=== PATIENT | female | born 1960 | race Caucasian/White ===

== ENCOUNTER 2020-03-12 04:47 | Day surgery (SDC) | payer OTHER ==
[2020-03-09 10:53] VITALS: BMI 24.0
[2020-03-12] MEDS ORDERED: LIDOCAINE HCL/PF 1% SDV 5ML VIAL ONE (07:47)
[2020-03-12] MEDS ORDERED: IOHEXOL 180 MG/1 ML ML IJ ONE (12:04)
[2020-03-12] MEDS ORDERED: DEXAMETHASONE SOD PHOSPHATE 4 MG/1 ML VIAL IM ONE (12:04)
[2020-03-12] MEDS ORDERED: LIDOCAINE HCL 1% PRESERVATIVE FREE - 30ML VIAL IJ ONE (12:04)
[2020-03-12 14:35] VITALS: BP 118/78; PULSE 60; TEMP 98
== END 2020-03-12 13:00 | disposition home or self-care (01) ==
LOC: JASU-SURG 04:47
PROVIDERS: ATTEND Pain Medicine Pain Medicine
PROC: 3E0R33Z Introduction of Anti-inflammatory into Spinal Canal, Percutaneous Approach (ICD-10-PCS; 2020-03-12)
PROC: 3E0R3BZ Introduction of Anesthetic Agent into Spinal Canal, Percutaneous Approach (ICD-10-PCS; principal; 2020-03-12 12:00)
DX: M54.12 Radiculopathy, cervical region (principal)

== ENCOUNTER 2020-05-18 04:23 | Day surgery (SDC) | payer OTHER ==
[2020-05-16 14:30] VITALS: BMI 23.5
[2020-05-18] MEDS ORDERED: LIDOCAINE HCL/PF 1% SDV 5ML VIAL ONE (07:26)
[2020-05-18] MEDS ORDERED: DEXAMETHASONE SOD PHOSPHATE 4 MG/1 ML VIAL IM ONE ×2 (11:46)
[2020-05-18] MEDS ORDERED: LIDOCAINE HCL 1% PRESERVATIVE FREE - 30ML VIAL INF ONE (11:47)
[2020-05-18] MEDS ORDERED: IOHEXOL 180 MG/1 ML ML IJ ONE (11:49)
[2020-05-18 12:19] VITALS: BP 115/74; PULSE 66; TEMP 97
== END 2020-05-18 12:54 | disposition home or self-care (01) ==
LOC: JASU-SURG 04:23
PROVIDERS: ATTEND Pain Medicine Pain Medicine
PROC: 3E0R33Z Introduction of Anti-inflammatory into Spinal Canal, Percutaneous Approach (ICD-10-PCS; 2020-05-18)
PROC: 3E0R3BZ Introduction of Anesthetic Agent into Spinal Canal, Percutaneous Approach (ICD-10-PCS; principal; 2020-05-18 11:00)
DX: M54.12 Radiculopathy, cervical region (principal)
CPT/HCPCS: 76000-TC-FY

== ENCOUNTER 2020-05-29 08:56 | Inpatient (IN) | payer OTHER ==
[2020-05-29] MEDS ORDERED: ACETAMINOPHEN 325 MG TABLET (FP) PO ONE (10:15)
[2020-05-29] MEDS ORDERED: LACTATED RINGERS SOLUTION 1000 ML INFUS.BAG IV ONE (10:15)
[2020-05-29] MEDS ORDERED: ACETAMINOPHEN 325 MG TABLET (FP) ONE (10:26)
[2020-05-29 10:38] LABS: VENOUS BASE EXCESS 1.6 mmol/L (-2-2); VENOUS O2 SATURATION 37.1 % (70-80); VENOUS PCO2 45.8 mmHg (38-52); VENOUS PH 7.39 (7.310-7.410)
[2020-05-29 10:39] LABS: BASO % 0.1 % (0-2.0); EOS % 0.2 % (0-4.5); HEMATOCRIT 37.5 % (32.4-45.2); HEMOGLOBIN 12.9 GM/dL (10.7-15.3); LYMPH % 10.9 % (8-40); MCH 30.5 pg (25.7-33.7); MCHC 34.4 g/dl (32.0-36.0); MEAN CELL VOLUME 88.7 fl (80-96); MEAN PLT VOLUME 9.2 fl (7.5-11.1); MONO % 5.7 % (3.8-10.2); NEUT % 83.1 % (42.8-82.8); PLATELET COUNT 163 K/MM3 (134-434); RBC 4.23 M/mm3 (3.60-5.2); RDW 12.7 % (11.6-15.6); WHITE BLOOD COUNT 7.1 K/mm3 (4.0-10.0)
[2020-05-29 11:00] LABS: CHLORIDE 110 mmol/L (98-107); INR 1.05 (0.83-1.09); PROTHROMBIN TIME (PATIENT) 12.7 SEC (9.7-13.0); SODIUM 146 mmol/L (136-145)
[2020-05-29 11:02] LABS: ACTIVATED PTT 34.1 SECONDS (25.2-36.5); ALBUMIN 2.8 g/dl (3.4-5.0); ANION GAP 7 MMOL/L (8-16); BLOOD UREA NITROGEN 12.4 mg/dL (7-18); CALCIUM 8.3 mg/dL (8.5-10.1); CO2 28 mmol/L (21-32); MAGNESIUM 2.1 mg/dL (1.8-2.4)
[2020-05-29 11:03] LABS: GLUCOSE,RANDOM 91 mg/dL (74-106)
[2020-05-29 11:05] LABS: PHOSPHOROUS 2.6 mg/dL (2.5-4.9); SGOT/AST 40 U/L (15-37); SGPT/ALT 35 U/L (13-61)
[2020-05-29 11:06] LABS: CREATININE 0.7 mg/dL (0.55-1.3); LDH 355 U/L (84-246)
[2020-05-29 11:07] LABS: BILIRUBIN,TOTAL 0.4 mg/dL (0.2-1)
[2020-05-29 11:08] LABS: ALK PHOS 57 U/L (45-117)
[2020-05-29] MEDS ORDERED: DEXAMETHASONE SOD PHOSPHATE 4 MG/1 ML VIAL IVPUSH ONE (11:40)
[2020-05-29] MEDS ORDERED: DEXAMETHASONE SOD PHOSPHATE 10 MG/1 ML VIAL ONE (11:59)
[2020-05-29 12:04] LABS: ERYTHROCYTE SEDIMENTATION RATE 38 mm/hr (0-30)
[2020-05-29] MEDS ORDERED: MELATONIN 5 MG TABLETS PO ONE (23:02)
[2020-05-29] MEDS: ASCORBIC ACID 500 MG TABLET (FP) PO SCH (23:21)
[2020-05-29 23:55] VITALS: BMI 23.7
[2020-05-30] MEDS ORDERED: guaiFENesin 200 MG/10 ML 10 ML UNIT-DOSE CUPS PO PRN (03:12)
[2020-05-30 09:26] LABS: BASO % 0.3 % (0-2.0); HEMATOCRIT 35.9 % (32.4-45.2); HEMOGLOBIN 12.6 GM/dL (10.7-15.3); LYMPH % 18.6 % (8-40); MCH 30.5 pg (25.7-33.7); MEAN CELL VOLUME 87.2 fl (80-96); MEAN PLT VOLUME 8.8 fl (7.5-11.1); MONO % 8.1 % (3.8-10.2); PLATELET COUNT 177 K/MM3 (134-434); RBC 4.12 M/mm3 (3.60-5.2); RDW 12.7 % (11.6-15.6); WHITE BLOOD COUNT 3.8 K/mm3 (4.0-10.0)
[2020-05-30 10:04] LABS: EPI CELLS 16 /uL (0-25.1); HYALINE CASTS 2 /uL (0-3.1); URINE APPEARANCE CLEAR; URINE BACTERIA 278 /uL (0-1359); URINE BILIRUBIN NEGATIVE (NEGATIVE); URINE COLOR YELLOW; URINE GLUCOSE (UA) NEGATIVE (NEGATIVE); URINE KETONE NEGATIVE (NEGATIVE); URINE LEUK ESTERASE NEGATIVE (NEGATIVE); URINE NITRITE NEGATIVE (NEGATIVE); URINE PROTEIN 1+ (NEGATIVE); URINE WBC 10 /uL (0-25.8)
[2020-05-30 10:04] LABS: POTASSIUM 3.8 mmol/L (3.5-5.1)
[2020-05-30 10:23] LABS: URINE RBC 33.6 /uL (0-23.9); YEAST NONE SEEN (NEGATIVE)
[2020-05-30 10:25] LABS: ALBUMIN 2.6 g/dl (3.4-5.0); BLOOD UREA NITROGEN 17.1 mg/dL (7-18); CALCIUM 8.8 mg/dL (8.5-10.1); MAGNESIUM 2.2 mg/dL (1.8-2.4)
[2020-05-30 10:27] LABS: CREATININE 0.6 mg/dL (0.55-1.3); PHOSPHOROUS 3.7 mg/dL (2.5-4.9)
[2020-05-30 10:28] LABS: BILIRUBIN,TOTAL 0.5 mg/dL (0.2-1); TOT PROT 5.9 g/dl (6.4-8.2)
[2020-05-30] MEDS: DEXAMETHASONE SOD PHOSPHATE 10 MG/1 ML VIAL IVPUSH SCH (10:56)
[2020-05-30] MEDS: ZINC SULFATE 220 MG CAPSULE (FP) PO SCH (10:56)
[2020-05-30] MEDS: ENOXAPARIN NA (PORCINE) 40 MG/0.4 ML DISP.SYRIN SQ SCH (10:56)
[2020-05-30] MEDS: ASCORBIC ACID 500 MG TABLET (FP) PO SCH ×2 (10:56→22:08)
[2020-05-30] MEDS: CHOLECALCIFEROL (VIT D3) 1,000 UNIT (25 MCG) TABLET PO SCH (10:56)
[2020-05-30] MEDS: FAMOTIDINE 20 MG TABLET PO SCH (10:56)
[2020-05-30] MEDS ORDERED: REMDESIVIR 200 MG in SODIUM CHLORIDE 210 ML IVPB ONE ×2 (17:00→20:00)
[2020-05-30] MEDS: guaiFENesin 200 MG/10 ML 10 ML UNIT-DOSE CUPS PO PRN (22:45)
[2020-05-31] MEDS ORDERED: MELATONIN 5 MG TABLETS PO ONE ×2 (01:03→22:22)
[2020-05-31] MEDS: guaiFENesin 200 MG/10 ML 10 ML UNIT-DOSE CUPS PO PRN (05:20)
[2020-05-31 09:15] LABS: BASO % 0.1 % (0-2.0); EOS % 0.1 % (0-4.5); HEMATOCRIT 33.7 % (32.4-45.2); HEMOGLOBIN 11.9 GM/dL (10.7-15.3); LYMPH % 18.1 % (8-40); MCH 30.6 pg (25.7-33.7); MCHC 35.3 g/dl (32.0-36.0); MEAN CELL VOLUME 86.8 fl (80-96); MEAN PLT VOLUME 9.2 fl (7.5-11.1); MONO % 11.3 % (3.8-10.2); NEUT % 70.4 % (42.8-82.8); PLATELET COUNT 229 K/MM3 (134-434); RBC 3.88 M/mm3 (3.60-5.2); RDW 12.2 % (11.6-15.6); WHITE BLOOD COUNT 6.2 K/mm3 (4.0-10.0)
[2020-05-31 09:28] LABS: POTASSIUM 3.9 mmol/L (3.5-5.1)
[2020-05-31 09:36] LABS: ALBUMIN 2.6 g/dl (3.4-5.0); CALCIUM 8.4 mg/dL (8.5-10.1); MAGNESIUM 2.2 mg/dL (1.8-2.4)
[2020-05-31 09:39] LABS: BILIRUBIN,TOTAL 0.4 mg/dL (0.2-1); CREATININE 0.5 mg/dL (0.55-1.3); PHOSPHOROUS 4.3 mg/dL (2.5-4.9)
[2020-05-31 09:40] LABS: TOT PROT 5.6 g/dl (6.4-8.2)
[2020-05-31] MEDS: DEXAMETHASONE SOD PHOSPHATE 10 MG/1 ML VIAL IVPUSH SCH (10:02)
[2020-05-31] MEDS: ENOXAPARIN NA (PORCINE) 40 MG/0.4 ML DISP.SYRIN SQ SCH (10:02)
[2020-05-31] MEDS: ZINC SULFATE 220 MG CAPSULE (FP) PO SCH (10:02)
[2020-05-31] MEDS: ASCORBIC ACID 500 MG TABLET (FP) PO SCH ×2 (10:02→22:26)
[2020-05-31] MEDS: FAMOTIDINE 20 MG TABLET PO SCH (10:03)
[2020-05-31] MEDS: CHOLECALCIFEROL (VIT D3) 1,000 UNIT (25 MCG) TABLET PO SCH (10:03)
[2020-05-31 10:52] LABS: ERYTHROCYTE SEDIMENTATION RATE 32 mm/hr (0-30)
[2020-05-31] MEDS: FLUoxetine HCL 20 MG CAPSULE PO SCH (13:41)
[2020-05-31] MEDS: REMDESIVIR 100 MG in SODIUM CHLORIDE 230 ML IVPB SCH (13:41)
[2020-06-01 09:07] LABS: BASO % 0.1 % (0-2.0); EOS % 0.1 % (0-4.5); HEMATOCRIT 36.5 % (32.4-45.2); HEMOGLOBIN 12.6 GM/dL (10.7-15.3); LYMPH % 24.8 % (8-40); MCH 30.4 pg (25.7-33.7); MCHC 34.5 g/dl (32.0-36.0); MEAN PLT VOLUME 9.2 fl (7.5-11.1); MONO % 14.3 % (3.8-10.2); NEUT % 60.7 % (42.8-82.8); PLATELET COUNT 253 K/MM3 (134-434); RBC 4.14 M/mm3 (3.60-5.2); RDW 12.1 % (11.6-15.6); WHITE BLOOD COUNT 5.6 K/mm3 (4.0-10.0)
[2020-06-01 09:57] LABS: CHLORIDE 106 mmol/L (98-107); POTASSIUM 4.1 mmol/L (3.5-5.1); SODIUM 140 mmol/L (136-145)
[2020-06-01 10:02] LABS: CALCIUM 8.8 mg/dL (8.5-10.1)
[2020-06-01 10:03] LABS: ALBUMIN 2.8 g/dl (3.4-5.0); ANION GAP 5 MMOL/L (8-16); BLOOD UREA NITROGEN 24.2 mg/dL (7-18); CO2 29 mmol/L (21-32); GLUCOSE,RANDOM 89 mg/dL (74-106); MAGNESIUM 2.2 mg/dL (1.8-2.4)
[2020-06-01 10:06] LABS: ALK PHOS 50 U/L (45-117); CREATININE 0.7 mg/dL (0.55-1.3); PHOSPHOROUS 4.2 mg/dL (2.5-4.9); SGOT/AST 28 U/L (15-37); SGPT/ALT 48 U/L (13-61)
[2020-06-01 10:08] LABS: BILIRUBIN,TOTAL 0.9 mg/dL (0.2-1); TOT PROT 6.1 g/dl (6.4-8.2)
[2020-06-01] MEDS: ZINC SULFATE 220 MG CAPSULE (FP) PO SCH (11:00)
[2020-06-01] MEDS: ASCORBIC ACID 500 MG TABLET (FP) PO SCH ×2 (11:01→23:26)
[2020-06-01] MEDS: DEXAMETHASONE SOD PHOSPHATE 10 MG/1 ML VIAL IVPUSH SCH (11:01)
[2020-06-01] MEDS: CHOLECALCIFEROL (VIT D3) 1,000 UNIT (25 MCG) TABLET PO SCH (11:01)
[2020-06-01] MEDS: FLUoxetine HCL 20 MG CAPSULE PO SCH (11:02)
[2020-06-01] MEDS: ENOXAPARIN NA (PORCINE) 40 MG/0.4 ML DISP.SYRIN SQ SCH (11:03)
[2020-06-01] MEDS: FAMOTIDINE 20 MG TABLET PO SCH (11:03)
[2020-06-01] MEDS: REMDESIVIR 100 MG in SODIUM CHLORIDE 230 ML IVPB SCH (16:56)
[2020-06-01] MEDS ORDERED: MELATONIN 5 MG TABLETS PO SCH (22:00)
[2020-06-01] MEDS: ZOLPIDEM TARTRATE 5 MG TABLET PO PRN (23:26)
[2020-06-02] MEDS: CHOLECALCIFEROL (VIT D3) 1,000 UNIT (25 MCG) TABLET PO SCH (09:36)
[2020-06-02] MEDS: ENOXAPARIN NA (PORCINE) 40 MG/0.4 ML DISP.SYRIN SQ SCH (09:36)
[2020-06-02] MEDS: FLUoxetine HCL 20 MG CAPSULE PO SCH (09:36)
[2020-06-02] MEDS: FAMOTIDINE 20 MG TABLET PO SCH (09:37)
[2020-06-02] MEDS: DEXAMETHASONE SOD PHOSPHATE 10 MG/1 ML VIAL IVPUSH SCH (09:37)
[2020-06-02] MEDS: ZINC SULFATE 220 MG CAPSULE (FP) PO SCH (09:37)
[2020-06-02] MEDS: ASCORBIC ACID 500 MG TABLET (FP) PO SCH ×2 (09:37→22:23)
[2020-06-02 10:04] LABS: BASO % 0.4 % (0-2.0); EOS % 0.4 % (0-4.5); HEMOGLOBIN 13.2 GM/dL (10.7-15.3); LYMPH % 29.8 % (8-40); MCH 30.5 pg (25.7-33.7); MCHC 34.8 g/dl (32.0-36.0); MEAN CELL VOLUME 87.7 fl (80-96); MEAN PLT VOLUME 8.6 fl (7.5-11.1); MONO % 13.4 % (3.8-10.2); PLATELET COUNT 304 K/MM3 (134-434); RBC 4.33 M/mm3 (3.60-5.2); RDW 12.1 % (11.6-15.6); WHITE BLOOD COUNT 5.3 K/mm3 (4.0-10.0)
[2020-06-02 10:49] LABS: ALBUMIN 2.8 g/dl (3.4-5.0); BLOOD UREA NITROGEN 20.5 mg/dL (7-18); CALCIUM 8.3 mg/dL (8.5-10.1); MAGNESIUM 2.2 mg/dL (1.8-2.4)
[2020-06-02 10:50] LABS: CREATININE 0.7 mg/dL (0.55-1.3)
[2020-06-02 10:51] LABS: PHOSPHOROUS 3.2 mg/dL (2.5-4.9)
[2020-06-02 10:52] LABS: BILIRUBIN,TOTAL 0.9 mg/dL (0.2-1); TOT PROT 5.9 g/dl (6.4-8.2)
[2020-06-02 11:12] LABS: POTASSIUM 3.4 mmol/L (3.5-5.1)
[2020-06-02] MEDS: REMDESIVIR 100 MG in SODIUM CHLORIDE 230 ML IVPB SCH (13:53)
[2020-06-02] MEDS: ZOLPIDEM TARTRATE 5 MG TABLET PO PRN (22:23)
[2020-06-03 09:59] LABS: BASO % 0.2 % (0-2.0); EOS % 0.7 % (0-4.5); HEMATOCRIT 38.5 % (32.4-45.2); HEMOGLOBIN 13.6 GM/dL (10.7-15.3); LYMPH % 27.3 % (8-40); MCH 30.5 pg (25.7-33.7); MCHC 35.3 g/dl (32.0-36.0); MEAN CELL VOLUME 86.6 fl (80-96); MEAN PLT VOLUME 8.4 fl (7.5-11.1); MONO % 10.1 % (3.8-10.2); NEUT % 61.7 % (42.8-82.8); PLATELET COUNT 376 K/MM3 (134-434); RBC 4.44 M/mm3 (3.60-5.2); RDW 12.1 % (11.6-15.6); WHITE BLOOD COUNT 7.1 K/mm3 (4.0-10.0)
[2020-06-03 10:29] LABS: CHLORIDE 103 mmol/L (98-107); POTASSIUM 3.6 mmol/L (3.5-5.1); SODIUM 141 mmol/L (136-145)
[2020-06-03 10:35] LABS: CALCIUM 8.5 mg/dL (8.5-10.1)
[2020-06-03 10:36] LABS: ALBUMIN 2.8 g/dl (3.4-5.0); ANION GAP 8 MMOL/L (8-16); CO2 30 mmol/L (21-32); GLUCOSE,RANDOM 92 mg/dL (74-106); MAGNESIUM 2.3 mg/dL (1.8-2.4)
[2020-06-03 10:38] LABS: CREATININE 0.7 mg/dL (0.55-1.3)
[2020-06-03 10:39] LABS: PHOSPHOROUS 3.5 mg/dL (2.5-4.9); SGOT/AST 43 U/L (15-37); SGPT/ALT 88 U/L (13-61)
[2020-06-03 10:40] LABS: ALK PHOS 55 U/L (45-117)
[2020-06-03 10:42] LABS: BLOOD UREA NITROGEN 18.8 mg/dL (7-18)
[2020-06-03 10:50] LABS: BILIRUBIN,TOTAL 0.6 mg/dL (0.2-1)
[2020-06-03] MEDS: FLUoxetine HCL 20 MG CAPSULE PO SCH (12:07)
[2020-06-03] MEDS: ENOXAPARIN NA (PORCINE) 40 MG/0.4 ML DISP.SYRIN SQ SCH (12:07)
[2020-06-03] MEDS: CHOLECALCIFEROL (VIT D3) 1,000 UNIT (25 MCG) TABLET PO SCH (12:07)
[2020-06-03] MEDS: ASCORBIC ACID 500 MG TABLET (FP) PO SCH ×2 (12:07→21:30)
[2020-06-03] MEDS: ZINC SULFATE 220 MG CAPSULE (FP) PO SCH (12:07)
[2020-06-03] MEDS: FAMOTIDINE 20 MG TABLET PO SCH (12:08)
[2020-06-03] MEDS: DEXAMETHASONE SOD PHOSPHATE 10 MG/1 ML VIAL IVPUSH SCH (12:08)
[2020-06-03] MEDS ORDERED: ONDANSETRON 4 MG/2 ML VIAL IVPUSH PRN (12:12)
[2020-06-03] MEDS: REMDESIVIR 100 MG in SODIUM CHLORIDE 230 ML IVPB SCH (16:00)
[2020-06-04 09:20] LABS: BASO % 0.3 % (0-2.0); EOS % 0.6 % (0-4.5); HEMATOCRIT 38.2 % (32.4-45.2); HEMOGLOBIN 13.2 GM/dL (10.7-15.3); LYMPH % 28.1 % (8-40); MCH 30.7 pg (25.7-33.7); MCHC 34.6 g/dl (32.0-36.0); MEAN CELL VOLUME 88.5 fl (80-96); MEAN PLT VOLUME 8.5 fl (7.5-11.1); MONO % 10.4 % (3.8-10.2); NEUT % 60.6 % (42.8-82.8); PLATELET COUNT 365 K/MM3 (134-434); RBC 4.31 M/mm3 (3.60-5.2); RDW 12.2 % (11.6-15.6); WHITE BLOOD COUNT 6.3 K/mm3 (4.0-10.0)
[2020-06-04 09:50] LABS: CHLORIDE 102 mmol/L (98-107); POTASSIUM 4.6 mmol/L (3.5-5.1); SODIUM 138 mmol/L (136-145)
[2020-06-04 10:00] LABS: BILIRUBIN,TOTAL 0.5 mg/dL (0.2-1)
[2020-06-04 10:01] LABS: BLOOD UREA NITROGEN 17.6 mg/dL (7-18)
[2020-06-04 10:02] LABS: ALBUMIN 2.9 g/dl (3.4-5.0); ALK PHOS 54 U/L (45-117); GLUCOSE,RANDOM 81 mg/dL (74-106); MAGNESIUM 2.4 mg/dL (1.8-2.4); PHOSPHOROUS 3.6 mg/dL (2.5-4.9); SGOT/AST 36 U/L (15-37); SGPT/ALT 86 U/L (13-61)
[2020-06-04 10:03] LABS: CALCIUM 8.9 mg/dL (8.5-10.1)
[2020-06-04 10:05] LABS: ANION GAP 5 MMOL/L (8-16); CO2 31 mmol/L (21-32)
[2020-06-04 10:10] LABS: CREATININE 0.7 mg/dL (0.55-1.3)
[2020-06-04] MEDS: DEXAMETHASONE SOD PHOSPHATE 10 MG/1 ML VIAL IVPUSH SCH (11:13)
[2020-06-04] MEDS: FLUoxetine HCL 20 MG CAPSULE PO SCH (11:14)
[2020-06-04] MEDS: ASCORBIC ACID 500 MG TABLET (FP) PO SCH (11:14)
[2020-06-04] MEDS: FAMOTIDINE 20 MG TABLET PO SCH (11:14)
[2020-06-04] MEDS: ZINC SULFATE 220 MG CAPSULE (FP) PO SCH (11:14)
[2020-06-04] MEDS: ENOXAPARIN NA (PORCINE) 40 MG/0.4 ML DISP.SYRIN SQ SCH (11:14)
[2020-06-04] MEDS: CHOLECALCIFEROL (VIT D3) 1,000 UNIT (25 MCG) TABLET PO SCH (11:15)
[2020-06-04 14:12] VITALS: BP 114/63; PULSE 68; TEMP 97
== END 2020-06-04 17:44 | disposition home health service (06) | DRG 177 ==
LOC: JER 08:56 → JERBED 12:29 → J6S 22:40
PROVIDERS: ADMIT Internal Medicine; ATTEND Internal Medicine
PROC: XW033E5 Introduction of Remdesivir Anti-infective into Peripheral Vein, Percutaneous Approach, New Technology Group 5 (ICD-10-PCS; principal; 2020-05-30)
DX: U07.1 COVID-19 (principal); J12.82 Pneumonia due to coronavirus disease 2019; J96.01 Acute respiratory failure with hypoxia; M54.12 Radiculopathy, cervical region; R43.8 Other disturbances of smell and taste
CPT/HCPCS: 36415; 71045-TC-FY; 80053; 81003; 82728; 82803; 83605; 83615; 83735; 84100; 84484; 85025; 85379; 85610; 85651; 85730; 86140; 86850; 86900; 86901; 87040; 87086; 87804; 93005; 93010; 94010; 94761; 97116-GP; 97162-GP; 99285-25; C9399; C9803; J1100; U0003

== ENCOUNTER 2022-12-12 16:00 | Emergency (ER) | payer OTHER ==
[2022-12-12 16:18] VITALS: BP 123/89; PULSE 63; RESP 18; TEMP 98.6; BMI 23.0
[2022-12-12] MEDS ORDERED: ACETAMINOPHEN 1000 MG/100 ML BAG IVPB ONE (16:39)
[2022-12-12] MEDS ORDERED: SODIUM CHLORIDE 1,000 ML IV ONE (16:39)
[2022-12-12] MEDS ORDERED: ACETAMINOPHEN INJECTION 100 ML IVPB ONE (16:55)
[2022-12-12 17:07] LABS: HEMATOCRIT 41.1 % (32.4-45.2); HEMOGLOBIN 14.1 G/dL (10.7-15.3); MCH 31.3 pg (25.7-33.7); MCHC 34.2 g/dl (32.0-36.0); MEAN CELL VOLUME 91.6 fl (80-96); PLATELET COUNT 202.6 10^3/uL (134-434); RBC 4.49 10^6/uL (3.60-5.2); RDW 13.5 % (11.6-15.6); WHITE BLOOD COUNT 7.6 10^3/uL (4.0-10.8)
[2022-12-12 17:22] LABS: PLATELET ESTIMATE ADEQUATE
[2022-12-12 17:27] LABS: ALBUMIN 4.2 g/dl (3.4-5.0); BLOOD UREA NITROGEN 16.7 mg/dl (7-18); CALCIUM 9.7 mg/dl (8.5-10.1); CREATININE 0.7 mg/dl (0.6-1.3); POTASSIUM 3.7 mmol/L (3.5-5.1); SGOT/AST 14.6 U/L (15-37); SGPT/ALT 9.7 U/L (7-52); TOT PROT 6.5 g/dl (6.4-8.2)
[2022-12-12] MEDS ORDERED: morphine CARPU-JECT 4 MG/1 ML DISP.SYRIN IVPUSH ONE (18:12)
[2022-12-12] MEDS ORDERED: morphine SULFATE 4 MG/ML VIAL ONE (18:18)
[2022-12-12 20:16] LABS: BILIRUBIN,TOTAL 0.4 mg/dL (0.2-1)
[2022-12-12] MEDS ORDERED: KETOROLAC TROMETHAMINE 30 MG/1 ML VIAL IVPUSH ONE (21:56)
[2022-12-12] MEDS ORDERED: KETOROLAC TROMETHAMINE 30 MG/1 ML VIAL ONE (22:03)
== END 2022-12-12 22:17 | disposition home or self-care (01) ==
LOC: FER 16:00
PROC: 3E033NZ Introduction of Analgesics, Hypnotics, Sedatives into Peripheral Vein, Percutaneous Approach (ICD-10-PCS; principal; 2022-12-12)
PROC: 3E0333Z Introduction of Anti-inflammatory into Peripheral Vein, Percutaneous Approach (ICD-10-PCS; 2022-12-12)
PROC: 3E0333Z Introduction of Anti-inflammatory into Peripheral Vein, Percutaneous Approach (ICD-10-PCS; 2022-12-12)
PROC: 3E0337Z Introduction of Electrolytic and Water Balance Substance into Peripheral Vein, Percutaneous Approach (ICD-10-PCS; 2022-12-12)
DX: R10.11 Right upper quadrant pain (principal); K80.20 Calculus of gallbladder without cholecystitis without obstruction; R10.31 Right lower quadrant pain; R35.0 Frequency of micturition
CPT/HCPCS: 36415; 74177-TC; 76705-TC; 80053; 81003; 85027; 87086; 99285-25; Q9967